=== PATIENT | male | born 2000 | race Hispanic/Latino ===

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

== ENCOUNTER 2018-05-22 13:06 | Emergency (ER) | payer SELFPAY ==
[2018-05-22] MEDS ORDERED: DIPHENHYDRAMINE HCL 25 MG CAPSULE ONE (13:34)
[2018-05-22] MEDS ORDERED: FAMOTIDINE 20MG TAB 20 MG TAB ONE (13:40)
[2018-05-22] MEDS ORDERED: PREDNISONE 20 MG TABLET ONE (13:40)
[2018-05-22] MEDS ORDERED: TETRACAINE HCL 0.5% 4 ML OPHTH SOLN ONE (14:42)
[2018-05-22] MEDS ORDERED: FLUORESCEIN SODIUM 0.6 MG STRIP ONE (14:43)
== END 2018-05-22 15:08 | disposition home or self-care (01) ==
LOC: EDH 13:06
DX: H11.421 Conjunctival edema, right eye (principal); T78.49XA Other allergy, initial encounter; Z91.030 Bee allergy status; Z72.0 Tobacco use; X58.XXXA Exposure to other specified factors, initial encounter
CPT/HCPCS: 99284; Q0163

== ENCOUNTER 2019-01-16 10:18 | Emergency (ER) | payer OTHER ==
[2019-01-16] MEDS ORDERED: FAMOTIDINE/PF 20 MG/2 ML VIAL IV ONE (11:22)
[2019-01-16] MEDS ORDERED: DiphenhydrAMINE HCL 50 MG/ML VIAL ONE (11:22)
[2019-01-16] MEDS ORDERED: METHYLPREDNISOLONE SOD SUCC 125MG/2ML VIAL ONE (11:22)
== END 2019-01-16 12:27 | disposition home or self-care (01) ==
LOC: EDH 10:18
DX: T63.441A Toxic effect of venom of bees, accidental (unintentional), initial encounter (principal); F41.9 Anxiety disorder, unspecified; Y92.89 Other specified places as the place of occurrence of the external cause
CPT/HCPCS: 96374; 96375; 99284; J1200; J2930; J3490

== ENCOUNTER 2020-02-04 11:56 | Emergency (ER) | payer OTHER ==
[2020-02-04] MEDS ORDERED: DEXAMETHASONE SOD PHOSPHATE 10MG/ML 1ML VIAL ONE (12:38)
[2020-02-04] MEDS ORDERED: IBUPROFEN 600 MG TABLET ONE (12:39)
[2020-02-04] MEDS ORDERED: DiphenhydrAMINE HCL 50 MG/ML VIAL ONE (12:39)
== END 2020-02-04 13:12 | disposition home or self-care (01) ==
LOC: EDH 11:56
DX: T63.441A Toxic effect of venom of bees, accidental (unintentional), initial encounter (principal); F41.9 Anxiety disorder, unspecified; Z72.0 Tobacco use; Y92.89 Other specified places as the place of occurrence of the external cause
CPT/HCPCS: 96372 ×2; 99284; J1100; J1200

== ENCOUNTER 2024-01-05 15:17 | Emergency (ER) | payer BC ==
[~2024-01-05] VITALS: Ht 165.1 cm; Wt 102.1 kg
[2024-01-05 15:43] VITALS: BP 137/94; PULSE 78; RESP 18; O2SAT 98
== END 2024-01-05 16:55 | disposition home or self-care (01) ==
LOC: EDH 15:17
DX: S63.682A Other sprain of left thumb, initial encounter (principal); Z91.030 Bee allergy status; X58.XXXA Exposure to other specified factors, initial encounter; Y93.89 Activity, other specified; Y92.89 Other specified places as the place of occurrence of the external cause; Y99.8 Other external cause status
CPT/HCPCS: 73140